=== PATIENT | female | born 1970 ===

== ENCOUNTER 2019-08-13 08:24 | Day surgery (SDC) | payer BC ==
[2019-08-13] MEDS ORDERED: LIDOCAINE 2% MDV (20MG/ML) 20ML VIAL IV ONE (08:25)
[2019-08-13] MEDS ORDERED: PROPOFOL 10 MG/ML VIAL IV ONE (08:25)
--- NOTE | 2019-08-14 08:10 | Operative Note ---
OPERATION: Screening COLONOSCOPY, initial exam. POSTOPERATIVE DIAGNOSIS: Normal exam. ESTIMATED BLOOD LOSS: None. COMPLICATIONS: None. SPECIMENS: None. PREPARATION QUALITY: Excellent. PROCEDURE: After informed consent was obtained from the patient, she was placed in the left lateral decubitus position in the endoscopy suite, sedated and monitored by the department of anesthesia. Digital rectal exam was unremarkable. A well-lubricated [id number] colonoscope was inserted into the rectum and advanced to the cecum. The cecum, cecal bulb, ileocecal valve, appendiceal orifice, ascending colon, transverse colon, descending colon, sigmoid colon, and rectum were free of inflammatory changes, mass lesions, or polyps. Forward and J-turn views of the rectum and anorectum were unremarkable. The endoscope was straightened, the rectal ampulla deflated, and the endoscope was removed. RECOMMENDATIONS: The patient should undergo repeat exam in 10 years or sooner should symptoms or new history warrant. As always, thank you for allowing me to participate in the healthcare of your patients. KENDRA
== END 2019-08-13 09:55 | disposition home or self-care (01) ==
LOC: HOP 08:24
PROVIDERS: ATTEND Internal Medicine Gastroenterology
DX: Z12.11 Encounter for screening for malignant neoplasm of colon (principal)
CPT/HCPCS: 00812; 81025; G0121